=== PATIENT | female | born 1995 | race Two or more races ===

== ENCOUNTER 2019-06-15 18:35 | Emergency (ER) | payer MEDICAID, OTHER ==
[~2019-06-15] VITALS: Ht 160 cm; Wt 59.0 kg
[2019-06-15 19:11] LABS: Basophils # (auto) 0 uL; Basophils % (auto) 0.3 % (0.0-2.0); Eosinophils # (auto) 0 uL; Eosinophils % (auto) 0.4 % (0.0-7.0); Hematocrit 41.6 % (36.0-46.0); Hemoglobin 14.4 g/dL (12.2-16.2); Lymphocytes % (auto) 23.8 % (10.0-50.0); Mean Corpuscular Hemoglobin 30.1 pg (28.0-32.0); Mean Corpuscular Hgb Conc. 34.5 g/dL (32.0-36.0); Mean Corpuscular Volume 87.2 fL (80.0-100.0); Monocytes # (auto) 0.9 uL; Monocytes % (auto) 6.7 % (0.0-12.0); Neutrophils # (auto) 8.7 uL; Neutrophils % (auto) 68.8 % (37.0-80.0); Platelet Count (auto) 362 10^3/uL (140-450); Red Blood Cells 4.77 10^6/uL (4.0-5.20); Red Cell Distribution Width 13.6 % (11.8-14.3); White Blood Cell 12.7 10^3/uL (4.4-10.8)
[2019-06-15 19:26] LABS: Albumin 3.6 g/dL (3.4-5.0); BUN/Creatinine Ratio 8.2; Calcium 8.6 mg/dL (8.5-10.1); Potassium 3.5 mmol/L (3.5-5.1)
[2019-06-15 19:29] LABS: Bilirubin, Total 0.2 mg/dL (0.2-1.0); Total Protein 7.8 g/dL (6.4-8.2)
[2019-06-15 19:39] LABS: Urine Bacteria FEW /hpf (None Seen); Urine Blood 3+ /uL (Negative); Urine Specific Gravity 1.007 (1.001-1.035); Urine WBC 24 /hpf (0 - 5)
[2019-06-16] MEDS ORDERED: cefTRIAXone 1GM/50ML D5W 50 ML IV ONE (00:15)
[2019-06-16] MEDS ORDERED: SODIUM CHLORIDE 0.9% 2,000 ML IV ONE (00:15)
[2019-06-16 03:00] VITALS: BP 106/60
== END 2019-06-16 03:50 | disposition home or self-care (01) ==
LOC: ER 18:43
DX: O20.0 Threatened abortion (principal); O23.41 Unspecified infection of urinary tract in pregnancy, first trimester; Z3A.01 Less than 8 weeks gestation of pregnancy
CPT/HCPCS: 36415; 76801; 80053; 81001; 84702; 85025; 87040; 87086; 96365; 96366; 99284; J0696; J7030

== ENCOUNTER 2020-04-19 17:15 | Observation (INO) | payer MEDICAID | END 2020-04-19 21:53 | disposition home or self-care (01) | LOC: LDRP 17:15 | PROVIDERS: ADMIT Obstetrics & Gynecology; ATTEND Obstetrics & Gynecology | DX: O42.92 Full-term premature rupture of membranes, unspecified as to length of time between rupture and onset of labor (principal); O62.9 Abnormality of forces of labor, unspecified; Z3A.39 39 weeks gestation of pregnancy | CPT/HCPCS: 59025; 81002; 84112; G0378; Q0114 ==

== ENCOUNTER 2020-04-23 08:44 | Inpatient (IN) | payer MEDICAID ==
[~2020-04-23] VITALS: Ht 160 cm; Wt 84.8 kg
[2020-04-23] MEDS ORDERED: PREN-96 PO (09:11)
[2020-04-23] MEDS ORDERED: FERR27TA2 PO (09:11)
[2020-04-23] MEDS ORDERED: LACT. RINGERS/OXYTOCIN 20UNITS 1,000 ML IV SCH (10:11)
[2020-04-23] MEDS ORDERED: WITCH HAZEL-GLYCERIN PAD TOP PRN (10:15)
[2020-04-23] MEDS ORDERED: NALBUPHINE HCL 10 MG/1ml INJECTION IV PRN (10:15)
[2020-04-23] MEDS ORDERED: PHISODERM TOP SOLN 240ML BTL TOP PRN (10:15)
[2020-04-23] MEDS ORDERED: LIDOCAINE 2%HCL (LOCAL ANESTH.) INJ 20ML MDV ID ONE (10:15)
[2020-04-23] MEDS ORDERED: DERMOPLAST 60ML BOTTLE TOP PRN (10:15)
[2020-04-23] MEDS: LACTATED RINGER'S 1,000 ML IV SCH ×4 (10:33→20:31)
[2020-04-23 11:05] LABS: Basophils # (auto) 0 10 ^3/uL (0-0.2); Basophils % (auto) 0.2 % (0.0-2.0); Eosinophils # (auto) 0.1 10 ^3/uL (0-0.8); Eosinophils % (auto) 0.7 % (0.0-7.0); Hematocrit 37.1 % (36.0-46.0); Hemoglobin 11.7 g/dL (12.2-16.2); Lymphocytes # (auto) 1.8 10 ^3/uL (0.4-5.4); Lymphocytes % (auto) 12.7 % (10.0-50.0); Mean Corpuscular Hemoglobin 29.1 pg (28.0-32.0); Mean Corpuscular Hgb Conc. 31.6 g/dL (32.0-36.0); Mean Corpuscular Volume 91.9 fL (80.0-100.0); Monocytes # (auto) 0.8 10 ^3/uL (0-1.3); Monocytes % (auto) 5.3 % (0.0-12.0); Neutrophils # (auto) 11.7 10 ^3/uL (1.6-8.6); Neutrophils % (auto) 81.1 % (37.0-80.0); Nucleated Red Blood Cells % 0.2 %; Platelet Count (auto) 279 10^3/uL (140-450); Red Blood Cells 4.03 10^6/uL (4.0-5.20); White Blood Cell 14.4 10^3/uL (4.4-10.8)
[2020-04-23 11:21] LABS: INR 0.92 (0.9-1.15); Partial Thromboplastin Time 25.6 sec (23.0-31.2)
[2020-04-23 11:26] LABS: Potassium 4.2 mmol/L (3.5-5.1)
[2020-04-23 11:35] LABS: Albumin 2.6 g/dL (3.4-5.0); BUN/Creatinine Ratio 8.4; Bilirubin, Total 0.3 mg/dL (0.2-1.0); Calcium 9.2 mg/dL (8.5-10.1); Uric Acid 6.4 mg/dL (2.6-6.0)
[2020-04-23 11:50] LABS: Alcohol, Urine < 3.0 mg/dL (0-10); Amphetamine Screen, Urine NEGATIVE (NEGATIVE); Barbiturate Scree,Urine NEGATIVE (NEGATIVE); Benzodiazephine Screen, Urine NEGATIVE (NEGATIVE); Cannabinoid Screen, Urine NEGATIVE (NEGATIVE); Cocaine Screen, Urine NEGATIVE (NEGATIVE); Opiate Scree,Urine NEGATIVE (NEGATIVE); Phencyclidine Screen, Urine NEGATIVE (NEGATIVE)
[2020-04-23 11:55] LABS: Urine Bacteria NONE SEEN /hpf (None Seen); Urine Blood TRACE /uL (Negative); Urine Specific Gravity 1.007 (1.001-1.035); Urine WBC 3 /hpf (0 - 5)
[2020-04-23] MEDS ORDERED: miSOPROStol 50 MCG per PRE-CUT 1/2 TAB PO PRN (12:15)
[2020-04-23] MEDS ORDERED: LACTATED RINGER'S 500 ML IV ONE (17:19)
[2020-04-23] MEDS ORDERED: ePHEDrine SULFATE 50 MG/ML AMP IV ONE (17:30)
[2020-04-23] MEDS ORDERED: fentaNYL CITRATE 100 MCG/2 ML VL IV ONE (17:30)
[2020-04-23] MEDS ORDERED: LIDOCAINE HCL 2 %PF INJ 10ML AMP IJ ONE (17:30)
[2020-04-23] MEDS ORDERED: NALOXONE HCL 0.4 MG/ML VIAL IV ONE (17:30)
[2020-04-23] MEDS ORDERED: diphenhdrAMINE HCL 25 MG CAP PO ONE (20:00)
[2020-04-23] MEDS: ROPIVACAINE HCL 100 ML EPI SCH (20:28)
[2020-04-24] VITALS (8 sets, daily range): BP systolic 116–135; BP diastolic 71–93
[2020-04-24] MEDS: ROPIVACAINE HCL 100 ML EPI SCH ×2 (02:17→09:00)
[2020-04-24] MEDS ORDERED: ceFAZolin 1GM/50ML 50 ML IV ONE (06:43)
[2020-04-24] MEDS ORDERED: ceFAZolin 1GM/50ML 50 ML IV SCH ×2 (06:45→15:00)
[2020-04-24 07:06] LABS: RPR Non Reactive (Non Reactive)
[2020-04-24] MEDS: LACTATED RINGER'S 1,000 ML IV SCH ×3 (08:57→20:30)
[2020-04-24] MEDS ORDERED: fentaNYL CITRATE 100 MCG/2 ML VL ONE (11:10)
[2020-04-24] MEDS ORDERED: MORPHINE SULF(PF) 0.5MG/ML 10ML VIAL ONE (11:10)
[2020-04-24] MEDS ORDERED: GLYCOPYRROLATE 0.2 MG/ML 1ML VIAL ONE (11:11)
[2020-04-24] MEDS ORDERED: LIDOCAINE HCL 2 %PF INJ 10ML AMP IJ ONE (11:11)
[2020-04-24] MEDS ORDERED: ePHEDrine SULFATE 50 MG/ML AMP ONE (11:11)
[2020-04-24] MEDS ORDERED: ceFAZolin 1GM VL ONE (11:11)
[2020-04-24] MEDS ORDERED: oxyTOCIN 10 UNIT/ML 10ML VIAL ONE (11:11)
[2020-04-24] MEDS ORDERED: ONDANSETRON HCL 4 MG/2 ML VIAL ONE (11:11)
[2020-04-24] MEDS ORDERED: TETRACAINE 1% INJ 2 ML VIAL IJ ONE (11:26)
[2020-04-24] MEDS ORDERED: MIDAZOLAM HCL 1MG/1ML-2 ML VIAL ONE (11:58)
[2020-04-24] MEDS ORDERED: MEPERIDINE HCL (25 MG/ML) 1ML VIAL ONE (12:03)
[2020-04-24] MEDS ORDERED: KETAMINE HCL 10 ML ONE (12:25)
[2020-04-24] MEDS ORDERED: ONDANSETRON HCL 4 MG/2 ML VIAL IV PRN ×3 (12:45→13:00)
[2020-04-24] MEDS ORDERED: HYDROmorphone HCL 2 MG/ML VL IV PRN (12:45)
[2020-04-24] MEDS ORDERED: GUM (CHEWING) 1 GUM CHEW CHEW ONE (12:45)
[2020-04-24] MEDS ORDERED: ACETAMINOPHEN IV 1000 MG/100ML (10MG/ML) IV PRN (12:45)
[2020-04-24] MEDS ORDERED: DexAMETHasone SOD PHOS 10MG/1ML VIAL INJ IV PRN (13:00)
[2020-04-24] MEDS ORDERED: KETOROLAC TROMETH 30 MG/ML 1ML VIAL IV PRN (13:00)
[2020-04-24] MEDS ORDERED: diphenhdrAMINE HCL 50 MG/1 ML VL IV PRN (13:00)
[2020-04-24] MEDS ORDERED: NALOXONE HCL 0.4 MG/ML VIAL IV PRN (13:00)
[2020-04-24] MEDS ORDERED: NALBUPHINE HCL 10 MG/1ml INJECTION SUBCUT ONE (13:00)
[2020-04-24] MEDS: KETOROLAC TROMETH 30 MG/ML 1ML VIAL IV PRN (17:29)
[2020-04-24] MEDS: ceFAZolin 1GM/50ML 50 ML IV SCH (19:36)
[2020-04-25] MEDS: KETOROLAC TROMETH 30 MG/ML 1ML VIAL IV PRN ×2 (00:33→07:59)
[2020-04-25 03:20] VITALS: BP 124/82
[2020-04-25] MEDS: ceFAZolin 1GM/50ML 50 ML IV SCH ×2 (04:50→12:22)
[2020-04-25 06:21] LABS: Basophils # (auto) 0.1 10 ^3/uL (0-0.2); Basophils % (auto) 0.3 % (0.0-2.0); Eosinophils # (auto) 0.1 10 ^3/uL (0-0.8); Eosinophils % (auto) 0.3 % (0.0-7.0); Hematocrit 28.9 % (36.0-46.0); Hemoglobin 9.5 g/dL (12.2-16.2); Lymphocytes # (auto) 1.4 10 ^3/uL (0.4-5.4); Lymphocytes % (auto) 7.9 % (10.0-50.0); Mean Corpuscular Hemoglobin 30.3 pg (28.0-32.0); Mean Corpuscular Volume 91.8 fL (80.0-100.0); Monocytes # (auto) 0.9 10 ^3/uL (0-1.3); Monocytes % (auto) 4.9 % (0.0-12.0); Neutrophils # (auto) 15.1 10 ^3/uL (1.6-8.6); Neutrophils % (auto) 86.6 % (37.0-80.0); Platelet Count (auto) 189 10^3/uL (140-450); Red Blood Cells 3.14 10^6/uL (4.0-5.20); White Blood Cell 17.5 10^3/uL (4.4-10.8)
[2020-04-25 06:44] LABS: Red Cell Distribution Width 20.5 % (11.8-14.3)
[2020-04-25 07:10] VITALS: BP 140/86
[2020-04-25] MEDS ORDERED: LACTATED RINGER'S 1,000 ML IV SCH (08:44)
[2020-04-25] MEDS ORDERED: BISACODYL 10 MG RECT SUPP PR PRN (08:45)
[2020-04-25] MEDS ORDERED: HYDROcodone-ACET 5/325MG TAB PO PRN (08:45)
[2020-04-25] MEDS: FERROUS SULFATE 325 MG TAB PO SCH ×2 (10:00→21:36)
[2020-04-25] MEDS: DOCUSATE CALCIUM 240 MG CAP PO SCH (10:00)
[2020-04-25] MEDS: DOCUSATE SOD 100 MG CAP PO SCH ×2 (10:00→21:36)
[2020-04-25] MEDS: HYDROcodone-ACET 5/325MG TAB PO PRN ×2 (10:01→17:33)
[2020-04-25 11:10] VITALS: BP 110/74
[2020-04-25] MEDS: SIMETHICONE 80 MG CHEWABLE TABLET PO SCH ×3 (12:22→21:36)
[2020-04-25] MEDS: IBUPROFEN 800 MG TAB PO PRN ×2 (14:51→21:36)
[2020-04-25 15:20] VITALS: BP 142/69
[2020-04-25 19:00] VITALS: BP 124/77
[2020-04-25 23:00] VITALS: BP 135/93
[2020-04-26] VITALS (7 sets, daily range): BP systolic 119–143; BP diastolic 76–91
[2020-04-26] MEDS: HYDROcodone-ACET 5/325MG TAB PO PRN ×5 (02:36→22:09)
[2020-04-26] MEDS: SIMETHICONE 80 MG CHEWABLE TABLET PO SCH ×4 (05:32→22:09)
[2020-04-26] MEDS: IBUPROFEN 800 MG TAB PO PRN ×2 (05:32→15:44)
[2020-04-26] MEDS: DOCUSATE CALCIUM 240 MG CAP PO SCH (10:28)
[2020-04-26] MEDS: FERROUS SULFATE 325 MG TAB PO SCH ×2 (10:28→22:09)
[2020-04-26] MEDS: DOCUSATE SOD 100 MG CAP PO SCH ×2 (10:28→22:09)
[2020-04-26] MEDS ORDERED: TETANUS-DIPTH-ACEL PERTUSSIS 0.5ML SYR Tdap IM ONE (22:00)
[2020-04-27 02:46] VITALS: BP 135/91
[2020-04-27] MEDS: IBUPROFEN 800 MG TAB PO PRN (02:49)
[2020-04-27] MEDS: SIMETHICONE 80 MG CHEWABLE TABLET PO SCH (05:31)
[2020-04-27] MEDS: HYDROcodone-ACET 5/325MG TAB PO PRN ×2 (05:31→09:37)
[2020-04-27 07:30] VITALS: BP 137/74
[2020-04-27] MEDS: DOCUSATE CALCIUM 240 MG CAP PO SCH (09:31)
[2020-04-27] MEDS: FERROUS SULFATE 325 MG TAB PO SCH (09:31)
[2020-04-27] MEDS: DOCUSATE SOD 100 MG CAP PO SCH (09:31)
[2020-04-27 09:58] VITALS: BP 139/79
== END 2020-04-27 10:05 | disposition home or self-care (01) | DRG 540 ==
LOC: LDRP 08:44 → OBSVTOIN 10:14 → LDRP 04-24 11:54
PROVIDERS: ADMIT Specialist; ATTEND Specialist
PROC: 10D00Z1 Extraction of Products of Conception, Low, Open Approach (ICD-10-PCS; principal; 2020-04-24 11:30)
DX: O69.81X0 Labor and delivery complicated by cord around neck, without compression, not applicable or unspecified (principal); O42.92 Full-term premature rupture of membranes, unspecified as to length of time between rupture and onset of labor; O62.0 Primary inadequate contractions; Z37.0 Single live birth; Z3A.39 39 weeks gestation of pregnancy; Z11.59 Encounter for screening for other viral diseases
CPT/HCPCS: 36415; 59025; 62282; 80053; 80307; 81001; 84112; 84550; 85025; 85610; 85730; 86592; 86850; 86900; 86901; 90715; 94760; 94762; 96360; 96361; 96365; 96366; 96372; 96374; 96375; G0378; J0131; J0690; J1885; J2250; J2405; J2590

== ENCOUNTER 2021-10-06 09:15 | Inpatient (IN) | payer MEDICAID ==
[~2021-10-06] VITALS: Ht 160 cm; Wt 72.6 kg
[2021-10-06] VITALS (11 sets, daily range): BP systolic 106–141; BP diastolic 64–95
[~2021-10-06 09:15] MED LIST: FERR27TA2 PO; PREN-96 PO
[2021-10-06] MEDS ORDERED: LACTATED RINGER'S 1,000 ML IV ONE (16:00)
[2021-10-06] MEDS ORDERED: TERBUTALINE SULFATE 1 MG/ML 1ML VIAL SC SCH (16:00)
[2021-10-06] MEDS ORDERED: ceFAZolin 1GM/50ML 50 ML IV ONE (16:15)
[2021-10-06] MEDS ORDERED: SODIUM CITR/CITRIC ACID ORAL SOLN 30 ML PO ONE (16:15)
[2021-10-06] MEDS ORDERED: LACTATED RINGER'S 1,000 ML IV SCH (16:15)
[2021-10-06] MEDS ORDERED: TETRACAINE 1% INJ 2 ML VIAL IJ ONE (16:53)
[2021-10-06 17:01] LABS: Basophils # (auto) 0 10 ^3/uL (0-0.2); Basophils % (auto) 0.2 % (0.0-2.0); Eosinophils # (auto) 0 10 ^3/uL (0-0.8); Eosinophils % (auto) 0.1 % (0.0-7.0); Hematocrit 32.8 % (36.0-46.0); Hemoglobin 10.4 g/dL (12.2-16.2); Lymphocytes # (auto) 2.3 10 ^3/uL (0.4-5.4); Lymphocytes % (auto) 19.3 % (10.0-50.0); Mean Corpuscular Hgb Conc. 31.8 g/dL (32.0-36.0); Mean Corpuscular Volume 81.9 fL (80.0-100.0); Monocytes # (auto) 0.6 10 ^3/uL (0-1.3); Neutrophils # (auto) 8.8 10 ^3/uL (1.6-8.6); Neutrophils % (auto) 75.4 % (37.0-80.0); Red Blood Cells 4.01 10^6/uL (4.0-5.20); White Blood Cell 11.6 10^3/uL (4.4-10.8)
[2021-10-06] MEDS ORDERED: MORPHINE SULF PF 2 MG/2 ML SYRG ONE (17:02)
[2021-10-06 17:15] LABS: INR 0.95 (0.9-1.15); Partial Thromboplastin Time 25.7 sec (23.6-33.0)
[2021-10-06 17:20] LABS: Urine Bacteria FEW /hpf (None Seen); Urine Blood Negative /uL (Negative); Urine Mucus FEW (None Seen); Urine WBC 2 /hpf (0 - 5)
[2021-10-06 17:21] LABS: Alcohol, Urine < 3.0 mg/dL (0-10); Amphetamine Screen, Urine NEGATIVE (NEGATIVE); Barbiturate Scree,Urine NEGATIVE (NEGATIVE); Benzodiazephine Screen, Urine NEGATIVE (NEGATIVE); Cannabinoid Screen, Urine NEGATIVE (NEGATIVE); Cocaine Screen, Urine NEGATIVE (NEGATIVE); Opiate Scree,Urine NEGATIVE (NEGATIVE); Phencyclidine Screen, Urine NEGATIVE (NEGATIVE)
[2021-10-06 17:21] LABS: Albumin 2.4 g/dL (3.4-5.0); Calcium 8.4 mg/dL (8.5-10.1); Potassium 3.5 mmol/L (3.5-5.1)
[2021-10-06 17:25] LABS: BUN/Creatinine Ratio 12.5; Bilirubin, Total 0.2 mg/dL (0.2-1.0)
[2021-10-06] MEDS ORDERED: HYDR-4902 PO (17:27)
[2021-10-06] MEDS ORDERED: DOCU-94 PO (17:27)
[2021-10-06] MEDS ORDERED: IBUP800T27 PO (17:27)
[2021-10-06] MEDS ORDERED: LACT. RINGERS/OXYTOCIN 20UNITS 1,000 ML IV ONE (17:30)
[2021-10-06] MEDS ORDERED: ceFAZolin 1GM/50ML 50 ML IV SCH (17:30)
[2021-10-06] MEDS ORDERED: ONDANSETRON HCL 4 MG/2 ML VIAL IV PRN ×2 (17:30→19:00)
[2021-10-06] MEDS ORDERED: oxyTOCIN 10 UNIT/ML 10ML VIAL ONE (18:38)
[2021-10-06] MEDS ORDERED: ePHEDrine SULFATE 50 MG/ML AMP ONE (18:38)
[2021-10-06] MEDS ORDERED: HYDROmorphone HCL 2 MG/ML VL IV PRN (19:00)
[2021-10-06 23:41] LABS: Basophils # (auto) 0 10 ^3/uL (0-0.2); Eosinophils # (auto) 0 10 ^3/uL (0-0.8); Lymphocytes # (auto) 1.6 10 ^3/uL (0.4-5.4); Monocytes # (auto) 0.7 10 ^3/uL (0-1.3)
[2021-10-06 23:43] LABS: Basophils % (auto) 0.1 % (0.0-2.0); Hematocrit 32.3 % (36.0-46.0); Hemoglobin 10.4 g/dL (12.2-16.2); Lymphocytes % (auto) 9.4 % (10.0-50.0); Mean Corpuscular Hemoglobin 26.3 pg (28.0-32.0); Mean Corpuscular Hgb Conc. 32.1 g/dL (32.0-36.0); Monocytes % (auto) 4.2 % (0.0-12.0); Neutrophils # (auto) 14.3 10 ^3/uL (1.6-8.6); Neutrophils % (auto) 86.3 % (37.0-80.0); Red Blood Cells 3.94 10^6/uL (4.0-5.20); White Blood Cell 16.5 10^3/uL (4.4-10.8)
[2021-10-07] VITALS (12 sets, daily range): BP systolic 97–124; BP diastolic 53–90
[2021-10-07] MEDS ORDERED: diphenhdrAMINE HCL 50 MG/1 ML VL IV ONE (00:45)
[2021-10-07] MEDS: ACETAMINOPHEN IV 1000 MG/100ML (10MG/ML) IV PRN ×2 (00:54→11:51)
[2021-10-07] MEDS: ceFAZolin 1GM/50ML 50 ML IV SCH ×2 (00:55→07:05)
[2021-10-07 06:58] LABS: Basophils # (auto) 0 10 ^3/uL (0-0.2); Basophils % (auto) 0.1 % (0.0-2.0); Eosinophils # (auto) 0 10 ^3/uL (0-0.8); Hemoglobin 9.6 g/dL (12.2-16.2); Monocytes # (auto) 0.7 10 ^3/uL (0-1.3); White Blood Cell 12.7 10^3/uL (4.4-10.8)
[2021-10-07 07:01] LABS: Eosinophils % (auto) 0.1 % (0.0-7.0); Hematocrit 29.4 % (36.0-46.0); Lymphocytes # (auto) 1.7 10 ^3/uL (0.4-5.4); Lymphocytes % (auto) 13.2 % (10.0-50.0); Mean Corpuscular Hemoglobin 26.8 pg (28.0-32.0); Mean Corpuscular Hgb Conc. 32.6 g/dL (32.0-36.0); Mean Corpuscular Volume 82.2 fL (80.0-100.0); Monocytes % (auto) 5.4 % (0.0-12.0); Neutrophils # (auto) 10.3 10 ^3/uL (1.6-8.6); Neutrophils % (auto) 81.2 % (37.0-80.0); Nucleated Red Blood Cells % 0.1 %; Red Blood Cells 3.58 10^6/uL (4.0-5.20); Red Cell Distribution Width 17.1 % (11.8-14.3)
[2021-10-07] MEDS ORDERED: IBUPROFEN 800 MG TAB PO PRN (15:15)
[2021-10-07] MEDS ORDERED: HYDROcodone-ACET 5/325MG TAB PO PRN (15:15)
[2021-10-07] MEDS: SIMETHICONE 80 MG CHEWABLE TABLET PO SCH ×2 (19:42→23:16)
[2021-10-07] MEDS: DOCUSATE SOD 100 MG CAP PO SCH (23:16)
[2021-10-08] MEDS: HYDROcodone-ACET 5/325MG TAB PO PRN ×2 (02:00→08:16)
[2021-10-08 03:00] VITALS: BP 118/76
[2021-10-08] MEDS: SIMETHICONE 80 MG CHEWABLE TABLET PO SCH (05:56)
[2021-10-08 06:06] LABS: RPR Non Reactive (Non Reactive)
[2021-10-08 07:10] VITALS: BP 106/68
[2021-10-08] MEDS ORDERED: DOCUSATE CALCIUM 240 MG CAP PO SCH (10:00)
[2021-10-08] MEDS: DOCUSATE SOD 100 MG CAP PO SCH (10:03)
[2021-10-08 10:50] VITALS: BP 110/68
== END 2021-10-08 13:15 | disposition home or self-care (01) | DRG 540 ==
LOC: EDSTATUS 09:15 → LDRP 11:05 → OBSVTOIN 15:03 → INTOOBSV 15:03 → UNDOADMOB 15:03 → LDRP 20:13 → UNDODISIN 10-08 13:15
PROVIDERS: ADMIT Obstetrics & Gynecology; ATTEND Obstetrics & Gynecology
PROC: 10D00Z1 Extraction of Products of Conception, Low, Open Approach (ICD-10-PCS; principal; 2021-10-06 17:29)
DX: O34.211 Maternal care for low transverse scar from previous cesarean delivery (principal); O69.1XX0 Labor and delivery complicated by cord around neck, with compression, not applicable or unspecified; Z37.0 Single live birth; Z3A.38 38 weeks gestation of pregnancy; Z51.5 Encounter for palliative care; Z20.822 Contact with and (suspected) exposure to COVID-19
CPT/HCPCS: 36415; 59025; 80053; 80307; 81001; 85025; 85610; 85730; 86592; 86850; 86900; 86901; 87426; 94760; 94762; 96360; 96361; 96365; 96366; 96372; 96374; G0378; J0131; J0690; J2590